=== PATIENT | female | born 2000 | race African-American/Black ===

== ENCOUNTER 2020-02-28 15:59 | Emergency (ER) | payer OTHER ==
[~2020-02-28] VITALS: Ht 182.9 cm; Wt 67.1 kg
[2020-02-28 16:00] VITALS: BP 118/63
[2020-02-28] MEDS ORDERED: TRIA1CR80 TOP (16:41)
== END 2020-02-28 16:46 | disposition home or self-care (01) ==
LOC: M ED 15:59
DX: L25.9 Unspecified contact dermatitis, unspecified cause (principal)

== ENCOUNTER 2020-11-15 05:08 | Emergency (ER) | payer OTHER ==
[~2020-11-15] VITALS: Ht 182.9 cm; Wt 71.7 kg
[~2020-11-15 05:08] MED LIST: TRIA1CR80 TOP
[2020-11-15] MEDS ORDERED: ACET-653 PO (05:16)
[2020-11-15] MEDS ORDERED: IBUP1TAB7 PO (05:16)
[2020-11-15] MEDS ORDERED: KETOROLAC 30 MG/ML 1ML VIAL IM ONE (07:00)
--- NOTE | 2020-11-15 07:55 | REPVR ---
PROCEDURE INFORMATION: Exam: US Pelvis Complete, Transabdominal and US Pelvis, Transvaginal US Duplex Artery or Vein of the Abdominal and/or Reproductive Organs, Limited Ovaries Exam date and time: 11/15/2020 6:43 AM Age: 20 years old Clinical indication: Pelvic pain; Prior surgery; Surgery date: 3-7 days post-operative; Surgery type: Elective 11/11. No quant done today; Additional info: Pelvic pain, post elective ab 11/11/20 TECHNIQUE: Imaging protocol: Real-time transabdominal and transvaginal pelvic ultrasound (complete) with image documentation. Transvaginal imaging was used for better evaluation of the endometrium, adnexa, and/or cervix. Real-time duplex ultrasound scan of the arterial or venous flow with cifuentes scale, color Doppler flow and spectral waveform analysis with image documentation. Limited duplex exam focused on the ovaries. Duplex images required to evaluate for torsion and other vascular conditions. COMPARISON: No relevant prior studies available. FINDINGS: Uterus/cervix: The anteverted uterus measures 8.9 x 4.6 x 5.3 cm, as best seen transvaginally. It is homogeneous in echotexture, without demonstrated lesion. The endometrium measures 7 mm in thickness. No gestational sac identified. Right adnexa: The right ovary measures 3.7 x 2.3 x 2.4 cm, as best seen transvaginally. It contains a 2.3 x 2.0 x 2.4 cm thick-walled cystic lesion. There is internal arterial flow to the ovary. Left adnexa: The left ovary measures 3.5 x 2.3 x 2.0 cm, as best seen transvaginally. It contains small follicles. There is arterial flow along the periphery of the ovary, not clearly seen internally. In the left adnexa adjacent to the ovary is a 1.0 x 2.0 x 1.2 cm echogenic, possibly solid lesion. Intraperitoneal space: Moderate free fluid is present in the cul-de-sac and right adnexa. Urinary bladder: Unremarkable as visualized. IMPRESSION: 1. Endometrium 7 mm in thickness without intrauterine gestational sac identified. 2. 2.4 cm thick-walled cystic right ovarian lesion, probably a complex corpus luteum, with moderate free fluid in the cul-de-sac and right adnexa. Confirm with test/beta hCG to exclude any possibility of ectopic. 3. 2.0 cm echogenic, possibly solid left para ovarian adnexal lesion. Recommend 6-12 week follow-up to ensure resolution. If the cyst is unchanged, then hemorrhagic cyst is unlikely, and continued follow-up with either US or MR should then be considered. If these studies do not confirm an endometrioma or dermoid, then surgical evaluation should be considered. 4. Normal internal arterial flow to the right ovary. Left ovary with flow along the periphery, not clearly seen internally, significance uncertain, unlikely related to torsion without enlargement of the ovary and potentially technical, but correlate clinically and consider follow-up. Electronically signed by: Kojo Mario On 11/15/2020 07:55:17 AM
[2020-11-15 08:44] LABS: HEMATOCRIT 40.1 % (36.0-47.0); HEMOGLOBIN 13.1 g/dl (12.0-15.5); MEAN CORPUSCULAR HEMOGLOBIN 29.7 pg (27.0-33.0); MEAN CORPUSCULAR HGB CONC 32.7 g/dl (32.0-36.5); MEAN CORPUSCULAR VOLUME 90.9 fl (80.0-96.0); PLATELET COUNT, AUTOMATED 233 10^3/uL (150-450); RED BLOOD COUNT 4.41 10^6/uL (4.00-5.40); WHITE BLOOD COUNT 6.9 10^3/uL (4.0-10.0)
[2020-11-15 12:23] VITALS: BP 120/72
--- NOTE | 2020-11-15 14:10 | ED PDOC ---
Post-Departure Follow-Up ft drum ob faxed formal report of pelvic us fo rfu Myriam Somers MD Nov 15, 2020 14:09
== END 2020-11-15 12:25 | disposition home or self-care (01) ==
LOC: M ED 05:08
DX: N83.9 Noninflammatory disorder of ovary, fallopian tube and broad ligament, unspecified (principal); G89.18 Other acute postprocedural pain; R10.9 Unspecified abdominal pain
CPT/HCPCS: 36415; 76830; 76856; 84702; 85027; 86850; 86900; 86901; 93976; 96372; 99284; J1885

== ENCOUNTER 2021-01-02 21:05 | Emergency (ER) | payer OTHER ==
[~2021-01-02] VITALS: Ht 182.9 cm; Wt 74.2 kg
[~2021-01-02 21:05] MED LIST changes: +ACET-653 PO; +IBUP1TAB7 PO
[2021-01-02 21:06] VITALS: BP 125/76
== END 2021-01-02 21:11 | disposition left against medical advice (07) ==
LOC: M ED 21:05
DX: Z53.21 Procedure and treatment not carried out due to patient leaving prior to being seen by health care provider (principal)

== ENCOUNTER 2021-02-22 17:08 | Emergency (ER) | payer OTHER ==
[~2021-02-22] VITALS: Ht 182.9 cm; Wt 70.5 kg
[2021-02-22] MEDS ORDERED: ZOFR4TAB16 PO (17:14)
[2021-02-22] MEDS ORDERED: IMMODIUM (17:15)
[2021-02-22 19:55] LABS: BASO # 0.1 10^3/uL (0.0-0.2); BASO % 1.2 % (0.0-1.0); EOS # 0.2 10^3/uL (0.0-0.5); EOS % 2.8 % (0.0-3.0); HEMATOCRIT 41.9 % (36.0-47.0); LYMPH # 2.6 10^3/uL (1.5-5.0); LYMPH % 40.7 % (24.0-44.0); MEAN CORPUSCULAR HEMOGLOBIN 30.1 pg (27.0-33.0); MEAN CORPUSCULAR HGB CONC 33.4 g/dl (32.0-36.5); MEAN CORPUSCULAR VOLUME 90.1 fl (80.0-96.0); MONO # 0.6 10^3/uL (0.0-0.8); MONO % 9.6 % (2.0-8.0); NEUTROPHILS % 45.5 % (36.0-66.0); PLATELET COUNT, AUTOMATED 251 10^3/uL (150-450); RED BLOOD COUNT 4.65 10^6/uL (4.00-5.40); WHITE BLOOD COUNT 6.5 10^3/uL (4.0-10.0)
[2021-02-22 21:02] VITALS: BP 128/78
== END 2021-02-22 21:08 | disposition home or self-care (01) ==
LOC: M ED 17:08
DX: R11.2 Nausea with vomiting, unspecified (principal); R19.7 Diarrhea, unspecified

== ENCOUNTER 2021-07-28 11:57 | Emergency (ER) | payer OTHER ==
[~2021-07-28] VITALS: Ht 182.9 cm; Wt 68.8 kg
[~2021-07-28 11:57] MED LIST changes: +IMMODIUM; +ZOFR4TAB16 PO
[2021-07-28 11:59] VITALS: BP 128/64
== END 2021-07-28 12:17 | disposition left against medical advice (07) ==
LOC: M ED 11:57
DX: Z53.29 Procedure and treatment not carried out because of patient's decision for other reasons (principal)

== ENCOUNTER 2021-12-28 12:31 | Emergency (ER) | payer OTHER ==
[~2021-12-28] VITALS: Ht 177.8 cm; Wt 77.2 kg
[2021-12-28 16:24] VITALS: BP 119/58
== END 2021-12-28 16:25 | disposition home or self-care (01) ==
LOC: M ED 12:31
DX: R07.89 Other chest pain (principal); M54.9 Dorsalgia, unspecified; S93.401A Sprain of unspecified ligament of right ankle, initial encounter; W01.0XXA Fall on same level from slipping, tripping and stumbling without subsequent striking against object, initial encounter; Y92.018 Other place in single-family (private) house as the place of occurrence of the external cause

== ENCOUNTER 2022-05-04 14:33 | Emergency (ER) | payer OTHER ==
[~2022-05-04] VITALS: Ht 177.8 cm; Wt 80.0 kg
[2022-05-04 14:33] VITALS: BP 127/80
[2022-05-04] MEDS ORDERED: NAPR220C14 PO (14:38)
== END 2022-05-04 16:28 | disposition left against medical advice (07) ==
LOC: M ED 14:33
DX: Z53.21 Procedure and treatment not carried out due to patient leaving prior to being seen by health care provider (principal)